=== PATIENT | female | born 1955 | race Asian ===

== ENCOUNTER 2018-04-23 08:58 | Day surgery (SDC) | payer OTHER ==
[~2018-04-23 08:58] MED LIST: CEFAZOLIN 2 GM/50 ML (PMX) 50 ML IVPB; SOD CHLORIDE 0.9% 1,000 ML IV
[2018-04-23] MEDS ORDERED: LIDOCAINE 2% (SDV) 5 ML INJ (13:09)
[2018-04-23] MEDS ORDERED: MEPERIDINE 100 MG INJ (13:09)
[2018-04-23] MEDS ORDERED: METOCLOPRAMIDE 10 MG INJ (13:09)
[2018-04-23] MEDS ORDERED: CEFAZOLIN 1 GM INJ (13:09)
[2018-04-23] MEDS ORDERED: PROPOFOL 20 ML (13:09)
[2018-04-23] MEDS ORDERED: ONDANSETRON 4 MG INJ (13:09)
[2018-04-23] MEDS ORDERED: METOCLOPRAMIDE 10 MG INJ IV (13:30)
[2018-04-23] MEDS ORDERED: HYDROmorphONE 1 MG/5 ML IV SYRINGE IV ×3 (13:30)
[2018-04-23] MEDS ORDERED: OXYCODONE/ACETAMINOPHEN (5/325) TAB PO ×2 (13:30)
[2018-04-23] MEDS ORDERED: LABETALOL HCL 20MG INJ IV (13:30)
[2018-04-23] MEDS ORDERED: MEPERIDINE 25 MG INJ IV (13:30)
[2018-04-23] MEDS ORDERED: MIDAZOLAM 1 MG/ML 2 ML INJ IV (13:30)
[2018-04-23] MEDS ORDERED: ONDANSETRON 4 MG INJ IV (13:30)
[2018-04-23] MEDS ORDERED: EPHEDrine SULFATE 50 MG/5 ML SYG IV (13:30)
[2018-04-23] MEDS ORDERED: hydrALAzine 20 MG INJ IV (13:30)
[2018-04-23] MEDS ORDERED: FENTAnyl 50 MCG/ML VIAL IV ×3 (13:30)
[2018-04-23] MEDS ORDERED: DIPHENHYDRAMINE 50 MG INJ IV (13:30)
[2018-04-23] MEDS ORDERED: BUPIVACAINE 0.25% (MPF) 30 ML INJ (13:32)
[2018-04-23] MEDS: BUPIVACAINE 0.25% (MPF) 30 ML INJ INJ (13:36)
[2018-04-23] MEDS ORDERED: HYDROCODONE/APAP (5/325) TAB PO (14:00)
== END 2018-04-23 16:17 | disposition home or self-care (01) ==
LOC: SDS 08:58
DX: L72.0 Epidermal cyst (principal); E78.5 Hyperlipidemia, unspecified
CPT/HCPCS: 14001; 88307